=== PATIENT | male | born 1980 | race Caucasian/White ===

== ENCOUNTER → 2019-05-25 | Outpatient (CLI) | payer BC ==
--- NOTE | 2019-05-25 19:19 | US ---
EXAMINATION TYPE: US abdomen complete DATE OF EXAM: 05/25/2019 COMPARISON: NONE CLINICAL HISTORY: R10.817 Generalized Abdominal Tenderness. Intermittent lower abdomen pain and bloat ing x 3 to 4 weeks, occasional nausea EXAM MEASUREMENTS: Liver Length: 15.3 cm Gallbladder Wall: 0.2 cm CBD: 0.4 cm Spleen: 14.3 cm Right Kidney: 10.1 x 5.4 x 5.2 cm Left Kidney: 11.0 x 5.3 x 5.2 cm Pancreas: limited by overlying midline bowel gas Liver: scanned intercostally, visualized portions wnl Gallbladder: wnl Evidence for sonographic Avalos's sign: no CBD: visualized portions wnl, limited by overlying midline bowel gas Spleen: mildly enlarged Right Kidney: wnl Left Kidney: wnl Upper IVC: wnl Abd Aorta: wnl IMPRESSION: 1. Limited examination due to bowel gas. 2. No suspicious ultrasound abnormality within the abdomen
== END | disposition home or self-care (01) ==
LOC: RADUSWWP 08:33
PROVIDERS: ATTEND Family Medicine
DX: K42.9 Umbilical hernia without obstruction or gangrene (principal); R10.817 Generalized abdominal tenderness
CPT/HCPCS: 76700

== ENCOUNTER 2020-10-27 19:54 | Inpatient (IN) | payer BC ==
[2020-10-27] MEDS ORDERED: ALBUTEROL HFA INHALER INHALATION STA (20:07)
[2020-10-27] MEDS ORDERED: SODIUM CHLORIDE 0.9% 1,000 ML IV ONE (20:24)
[2020-10-27] MEDS ORDERED: KETOROLAC 15 MG/ML 1 ML VIAL IVP STA (20:24)
--- NOTE | 2020-10-27 20:26 | ED ---
SOB HPI - General Chief Complaint: Shortness of Breath Stated Complaint: +COVID,SOB Time Seen by Provider: 10/27/20 20:01 Source: patient Mode of arrival: ambulatory Limitations: no limitations - History of Present Illness Initial Comments: 40 year-old male patient diagnosed with COVID-19 three days ago presents to the emergency department for evaluation for increased shortness of breath and fatigue. Patient states he has had symptoms for a week. States he has a harsh cough, nausea, fatigue, and aching joints. He denies sputum production. Denies history of lung conditions or smoking. Denies any chronic medical conditions. Denies any constipation or diarrhea. States he has decreased appetite. T-max at home is 103.9F. he did take medicine for fever around 7:30 this evening. Denies any other medications. Patient denies any recent rash, chest pain, abdominal pain, back pain, numbness, tingling, dizziness, hematuria, dysuria, urinary urgency, urinary frequency, headache, visual changes, or any other complaints. - Related Data Home Medications Medication Instructions Recorded Confirmed No Known Home Medications 10/27/20 10/27/20 Allergies Allergy/AdvReac Type Severity Reaction Status Date / Time Penicillins Allergy Rash/Hives Verified 10/27/20 21:42 Review of Systems ROS Statement: Those systems with pertinent positive or pertinent negative responses have been documented in the HPI. ROS Other: All systems not noted in ROS Statement are negative. Past Medical History Past Medical History: No Reported History History of Any Multi-Drug Resistant Organisms: None Reported Past Surgical History: Hernia Repair Additional Past Surgical History / Comment(s): BOWEL POLYPS REMOVED Past Psychological History: No Psychological Hx Reported Smoking Status: Former smoker Past Alcohol Use History: None Reported Past Drug Use History: None Reported General Exam Limitations: no limitations General appearance: alert, in no apparent distress, other (This is a well devloped, well nourished adult male patient in mild respiratory distress. Temp is 100F, pulse 98, respirations 28, blood pressur 125/77, pulse ox 92% on room air.) Eye exam: Present: normal appearance, PERRL, EOMI. Absent: scleral icterus, conjunctival injection, periorbital swelling ENT exam: Present: normal exam, normal oropharynx, mucous membranes moist Respiratory exam: Present: normal lung sounds bilaterally, other (Tachypnea). Absent: respiratory distress, wheezes, rales, rhonchi, stridor Cardiovascular Exam: Present: regular rate, normal rhythm, normal heart sounds. Absent: systolic murmur, diastolic murmur, rubs, gallop, clicks GI/Abdominal exam: Present: soft, normal bowel sounds. Absent: distended, tenderness, guarding, rebound, rigid Neurological exam: Present: alert, oriented X3, CN II-XII intact Psychiatric exam: Present: normal affect, normal mood Skin exam: Present: warm, dry, intact, normal color. Absent: rash Course Vital Signs 10/27/20 10/27/20 10/27/20 19:56 20:47 20:52 Temperature 100 F H 99 F Pulse Rate 98 86 Respiratory 28 H 20 Rate Blood Pressure 125/77 133/83 O2 Sat by Pulse 92 L 94 L Oximetry 10/27/20 22:00 Temperature Pulse Rate Respiratory Rate Blood Pressure O2 Sat by Pulse 90 L Oximetry Medical Decision Making - Medical Decision Making 40-year-old male patient presents to the emergency department today for evaluation of increased shortness of breath, fatigue, nausea. Diagnosis over the on Thursday. Physical examination did reveal clear equal lung sounds. Labs reviewed and did reveal elevated CRP, LDH. Chest x-ray did show developing pneumonia. He did have ambulatory pulse ox of 88-89% on room air. He will be admitted to the hospital we will start steroids. Give albuterol inhaler. We will consult pulmonology. - Lab Data Result diagrams: 10/27/20 20:20 10/27/20 20:20 Lab Results 10/27/20 10/27/20 10/27/20 Range/Units 20:20 20:20 20:20 WBC 4.1 (3.8-10.6) k/uL RBC 4.58 (4.30-5.90) m/uL Hgb 13.7 (13.0-17.5) gm/dL Hct 39.7 (39.0-53.0) % MCV 86.7 (80.0-100.0) fL MCH 29.8 (25.0-35.0) pg MCHC 34.4 (31.0-37.0) g/dL RDW 13.9 (11.5-15.5) % Plt Count 236 (150-450) k/uL MPV 7.1 Neutrophils % 77 % Lymphocytes % 18 % Monocytes % 3 % Eosinophils % 0 % Basophils % 0 % Neutrophils # 3.1 (1.3-7.7) k/uL Lymphocytes # 0.7 L (1.0-4.8) k/uL Monocytes # 0.1 (0-1.0) k/uL Eosinophils # 0.0 (0-0.7) k/uL Basophils # 0.0 (0-0.2) k/uL Hyperchromasia Slight PT 10.4 (9.0-12.0) sec INR 1.0 (<1.2) APTT 24.3 (22.0-30.0) sec D-Dimer 0.30 (<0.60) mg/L FEU Sodium 136 L (137-145) mmol/L Potassium 3.8 (3.5-5.1) mmol/L Chloride 100 (98-107) mmol/L Carbon Dioxide 24 (22-30) mmol/L Anion Gap 12 mmol/L BUN 17 (9-20) mg/dL Creatinine 0.93 (0.66-1.25) mg/dL Est GFR (CKD-EPI)AfAm >90 (>60 ml/min/1.73 sqM) Est GFR (CKD-EPI)NonAf >90 (>60 ml/min/1.73 sqM) Glucose 114 H (74-99) mg/dL Plasma Lactic Acid [place] (0.7-2.0) mmol/L Calcium 9.2 (8.4-10.2) mg/dL Magnesium 2.2 (1.6-2.3) mg/dL Total Bilirubin 0.8 (0.2-1.3) mg/dL AST 54 (17-59) U/L ALT 72 H (4-49) U/L Alkaline Phosphatase 80 (38-126) U/L Lactate Dehydrogenase 940 H (313-618) U/L C-Reactive Protein 52.8 H (<10.0) mg/L Total Protein 7.9 (6.3-8.2) g/dL Albumin 4.3 (3.5-5.0) g/dL 10/27/20 Range/Units 20:20 WBC (3.8-10.6) k/uL RBC (4.30-5.90) m/uL Hgb (13.0-17.5) gm/dL Hct (39.0-53.0) % MCV (80.0-100.0) fL MCH (25.0-35.0) pg MCHC (31.0-37.0) g/dL RDW (11.5-15.5) % Plt Count (150-450) k/uL MPV Neutrophils % % Lymphocytes % % Monocytes % % Eosinophils % % Basophils % % Neutrophils # (1.3-7.7) k/uL Lymphocytes # (1.0-4.8) k/uL Monocytes # (0-1.0) k/uL Eosinophils # (0-0.7) k/uL Basophils # (0-0.2) k/uL Hyperchromasia PT (9.0-12.0) sec INR (<1.2) APTT (22.0-30.0) sec D-Dimer (<0.60) mg/L FEU Sodium (137-145) mmol/L Potassium (3.5-5.1) mmol/L Chloride (98-107) mmol/L Carbon Dioxide (22-30) mmol/L Anion Gap mmol/L BUN (9-20) mg/dL Creatinine (0.66-1.25) mg/dL Est GFR (CKD-EPI)AfAm (>60 ml/min/1.73 sqM) Est GFR (CKD-EPI)NonAf (>60 ml/min/1.73 sqM) Glucose (74-99) mg/dL Plasma Lactic Acid [place] 0.9 (0.7-2.0) mmol/L Calcium (8.4-10.2) mg/dL Magnesium (1.6-2.3) mg/dL Total Bilirubin (0.2-1.3) mg/dL AST (17-59) U/L ALT (4-49) U/L Alkaline Phosphatase (38-126) U/L Lactate Dehydrogenase (313-618) U/L C-Reactive Protein (<10.0) mg/L Total Protein (6.3-8.2) g/dL Albumin (3.5-5.0) g/dL - EKG Data -: EKG Interpreted by Ut EKG Comments: EKG obtained at 2043 shows normal sinus rhythm with a ventricular rate of 83, UT interval 172, QR jehovah's witness 84, QT 352, QTc 413. No evidence of ST elevation o r depression - Radiology Data Radiology results: report reviewed, image reviewed One view x-ray of the chest is obtained. Report was reviewed in its entirety. Impression by Dr. Mejia shows new mild pneumonia and atelectasis at the right lung base compared to old exam. Normal heart. Disposition Clinical Impression: Pneumonia due to COVID-19 virus, Hypoxia Disposition: ADMITTED IP TO THIS HOSP Condition: Serious Referrals: Clayton James DO [Primary Care Provider] - 1-2 days Decision to Admit Reason: Admit from EC Decision Date: 10/27/20 Decision Time: 22:22
--- NOTE | 2020-10-27 20:35 | XR ---
EXAMINATION TYPE: XR chest 1V portable DATE OF EXAM: 10/27/2020 COMPARISON: 08/26/2014 HISTORY: Cough and congestion TECHNIQUE: Single view FINDINGS: There is some mild infiltrate and atelectasis at the right lung base. Left lung is fairly c lear. There is no heart failure. Heart size is normal. IMPRESSION: New mild pneumonia and atelectasis at the right lung base compared to old exam. Normal he art.
[2020-10-27] MEDS ORDERED: ONDANSETRON 4 MG/2 ML VIAL IVP STA (20:52)
[2020-10-27 21:14] LABS: Basophils % (A) 0 %; Eosinophils % (A) 0 %; HCT 39.7 % (39.0-53.0); HGB 13.7 gm/dL (13.0-17.5); Hyperchromasia Slight; Lymphocytes # (A) 0.7 k/uL (1.0-4.8); Lymphocytes % (A) 18 %; MCH 29.8 pg (25.0-35.0); MCHC 34.4 g/dL (31.0-37.0); MCV 86.7 fL (80.0-100.0); Mean Platelet Volume 7.1; Monocytes # (A) 0.1 k/uL (0-1.0); Monocytes % (A) 3 %; Neutrophils # (A) 3.1 k/uL (1.3-7.7); Neutrophils % (A) 77 %; Platelet Count 236 k/uL (150-450); RBC 4.58 m/uL (4.30-5.90); RDW 13.9 % (11.5-15.5); WBC 4.1 k/uL (3.8-10.6)
[2020-10-27 21:26] LABS: D-Dimer 0.3 mg/L FEU (<0.60); Partial Thromboplastin Time 24.3 sec (22.0-30.0); Prothrombin Time 10.4 sec (9.0-12.0)
[2020-10-27 21:36] LABS: ALT 72 U/L (4-49); AST 54 U/L (17-59); African American GFR (CKD) >90 (>60 ml/min/1.73 sqM); Albumin 4.3 g/dL (3.5-5.0); Alkaline Phosphatase 80 U/L (38-126); Anion Gap 12 mmol/L; Blood Urea Nitrogen 17 mg/dL (9-20); C Reactive Protein 52.8 mg/L (<10.0); Calcium 9.2 mg/dL (8.4-10.2); Carbon Dioxide 24 mmol/L (22-30); Chloride 100 mmol/L (98-107); Glucose 114 mg/dL (74-99); LDH 940 U/L (313-618); Magnesium 2.2 mg/dL (1.6-2.3); Non-African American GFR(CKD) >90 (>60 ml/min/1.73 sqM); Potassium 3.8 mmol/L (3.5-5.1); Sodium 136 mmol/L (137-145); Total Bilirubin 0.8 mg/dL (0.2-1.3); Total Protein 7.9 g/dL (6.3-8.2)
[2020-10-27] MEDS ORDERED: DEXAMETHASONE SOD PHOSPHATE 10 MG/ML 1 ML VIAL IV STA (22:00)
[2020-10-27] MEDS ORDERED: KETOROLAC 15 MG/ML 1 ML VIAL IVP PRN (22:19)
[2020-10-27] MEDS ORDERED: ONDANSETRON 4 MG/2 ML VIAL IVP PRN (22:19)
[2020-10-27] MEDS ORDERED: NALOXONE 0.4 MG/ML 1 ML VIAL IV PRN (22:19)
[2020-10-27] MEDS ORDERED: ALBUTEROL HFA INHALER INHALATION PRN (22:33)
[2020-10-28] MEDS: ALBUTEROL HFA INHALER INHALATION SCH ×4 (07:28→20:01)
[2020-10-28] MEDS ORDERED: ALBUTEROL HFA INHALER INHALATION SCH (08:00)
[2020-10-28] MEDS: DEXAMETHASONE SOD PHOSPHATE 10 MG/ML 1 ML VIAL IV SCH (08:29)
[2020-10-28] MEDS: COLCHICINE 0.6 MG EACH PO SCH ×2 (08:29→19:51)
[2020-10-28] MEDS: ACETAMINOPHEN TAB 325 MG TAB PO PRN ×2 (08:37→19:50)
--- NOTE | 2020-10-28 10:17 | P.HPIM ---
History of Present Illness 40 year-old male patient diagnosed with COVID-19 three days ago presents to the emergency department for evaluation for increased shortness of breath and fatigue. Patient states he has had symptoms for a week. States he has a harsh cough, nausea, fatigue, and aching joints. He denies sputum production. Denies history of lung conditions or smoking. Denies any chronic medical conditions. Denies any constipation or diarrhea. States he has decreased appetite. T-max at home is 103.9F yesterday. Patient denies any recent rash, chest pain, abdominal pain, back pain, numbness, tingling, dizziness, hematuria, dysuria, urinary urgency, urinary frequency, headache, visual changes, or any other complaints. Patient was diagnosed with the Covid about a week ago. Patient was having symptoms for about 10 days. Patient was started on Decadron, colchicine. Patient will be started on zinc supplementation as well. Patient is outside window for Remdesivir. Review of Systems REVIEW OF SYSTEMS: CONSTITUTIONAL: As mentioned in HPI HEENT: No recent visual problems or hearing problems. Denied any sore throat. CARDIOVASCULAR: No chest pain, orthopnea, PND, no palpitations, no syncope. PULMONARY: no cough, no hemoptysis. GASTROINTESTINAL: No diarrhea, no nausea, no vomiting, no abdominal pain. NEUROLOGICAL: No headaches, no weakness, no numbness. HEMATOLOGICAL: Denies any bleeding or petechiae. GENITOURINARY: Denies any burning micturition, frequency, or urgency. MUSCULOSKELETAL/RHEUMATOLOGICAL: Denies any joint pain, swelling, or any muscle pain. ENDOCRINE: Denies any polyuria or polydipsia. The rest of the 14-point review of systems is negative. Past Medical History Past Medical History: No Reported History History of Any Multi-Drug Resistant Organisms: None Reported Past Surgical History: Hernia Repair Additional Past Surgical History / Comment(s): BOWEL POLYPS REMOVED Past Psychological History: No Psychological Hx Reported Smoking Status: Former smoker Past Alcohol Use History: None Reported Past Drug Use History: None Reported Medications and Allergies Home Medications Medication Instructions Recorded Confirmed Type No Known Home Medications 10/27/20 10/27/20 History Allergies Allergy/AdvReac Type Severity Reaction Status Date / Time Penicillins Allergy Rash/Hives Verified 10/27/20 21:42 Physical Exam Vitals: Vital Signs Temp Pulse Pulse Resp BP BP Pulse Ox 10/28/20 08:31 75 15 10/28/20 05:46 97.6 F 75 15 134/81 95 10/28/20 01:41 97.4 F L 64 15 118/75 98 10/27/20 23:04 97.3 F L 71 14 118/76 95 10/27/20 22:25 86 H 10/27/20 22:00 90 L 10/27/20 20:52 86 20 133/83 94 L 10/27/20 20:47 99 F 10/27/20 19:56 100 F H 98 28 H 125/77 92 L Intake and Output 10/27/20 10/28/20 10/28/20 22:59 06:59 14:59 Other: Weight 90.718 kg PHYSICAL EXAMINATION: GENERAL: The patient is alert and oriented x3, not in any acute distress. Well developed, well nourished. HEENT: Pupils are round and equally reacting to light. EOMI. No scleral icterus. No conjunctival pallor. Normocephalic, atraumatic. No pharyngeal erythema. No thyromegaly. CARDIOVASCULAR: S1 and S2 present. No murmurs, rubs, or gallops. PULMONARY: Chest is clear to auscultation, no wheezing or crackles. ABDOMEN: Soft, nontender, nondistended, normoactive bowel sounds. No palpable organomegaly. MUSCULOSKELETAL: No joint swelling or deformity. EXTREMITIES: No cyanosis, clubbing, or pedal edema. NEUROLOGICAL: Gross neurological examination did not reveal any focal deficits. SKIN: No rashes. Results CBC & Chem 7: 10/27/20 20:20 10/27/20 20:20 Labs: Abnormal Lab Results - Last 24 Hours (Table) 10/27/20 10/27/20 Range/Units 20:20 20:20 Lymphocytes # 0.7 L (1.0-4.8) k/uL Sodium 136 L (137-145) mmol/L Glucose 114 H (74-99) mg/dL ALT 72 H (4-49) U/L Lactate Dehydrogenase 940 H (313-618) U/L C-Reactive Protein 52.8 H (<10.0) mg/L Thrombosis Risk Factor Assmnt - Choose All That Apply Any of the Below Risk Factors Present?: Yes Each Factor Represents 1 point: Age 41-60 years, Medical pt on bed rest Thrombosis Risk Factor Assessment Total Risk Factor Score: 2 Thrombosis Risk Factor Assessment Level: Low Risk Assessment and Plan Plan: -Covid 19 infection and pneumonia: Patient will be continued on above-mentioned medications that his colchicine, Decadron, zinc. Monitor clinically if he improves and if he doesn't require any oxygen patient probably can be discharged tomorrow. -Elevated inflammatory markers secondary to Covid 19. -DVT prophylaxis Lovenox GI prophylaxis Pepcid
[2020-10-28 10:59] LABS: Ferritin 1695.2 ng/mL (22.0-322.0)
[2020-10-28] MEDS: CHOLECALCIFEROL 25 MCG (1000 IU) TABLET PO SCH (11:49)
[2020-10-28] MEDS: ASCORBIC ACID 500 MG TAB PO SCH (11:50)
--- NOTE | 2020-10-28 11:54 | P.HPPUL ---
History of Present Illness H&P Date: 10/28/20 Chief Complaint: Shortness of breath This is a very pleasant 40-year-old gentleman who follows with Dr. James as his primary care provider. He has no significant medical history. Not on any home medications. On 10/19/2020 he developed symptoms of fever, body aches and pains. He then developed nausea, vomiting and diarrhea with headaches. He tested positive for CoVID on 10/22/2020. The last couple of days he's had increasing shortness of breath cough and congestion. He presented here to the emergency room yesterday for the same. Initial temperature 100.0. O2 saturation 92% on room air. Chest x-ray did reveal evidence of atelectasis and mild infiltrate at the right lung base. White count 12.1. Hemoglobin 13.7. D- dimer 0.30. Sodium 136. Potassium 3.8. Ferritin level MDCXCV. LDH 940. C- reactive protein 52.8. He is seen today in consultation on the regular medical floor. He is currently resting quite comfortably in bed. Awake and alert in no acute distress. He states he still has some dyspnea on minimal exertion. He is maintaining O2 saturation in the 90s on 2 L/m per nasal cannula. Currently afebrile. Continues with diarrhea. Review of Systems REVIEW OF SYSTEMS: CONSTITUTIONAL: Positive for generalized weakness, myalgias, fever. Denies any recent significant weight loss or weight gain. EYES: Denies change in vision. EARS, NOSE, MOUTH, THROAT: Denies headaches, denies sore throat. CARDIOVASCULAR: Denies chest pain, palpitations or syncopal episodes. RESPIRATORY: Positive for shortness of breath, cough, congestion no hemoptysis. GASTROINTESTINAL: Positive for nausea, vomiting, diarrhea. GENITOURINARY: Denies hematuria, denies infections. MUSKULOSKELETAL: Denies pain, denies swelling. INTEGUMENTARY: Denies rash, denies eczema. NEUROLOGICAL: Denies recent memory loss, no recent seizure activity. PSYCHIATRIC: Denies anxiety, denies depression. HEMATOLOGIC/LYMPHATIC: Denies anemia, denies enlarged lymph nodes. Past Medical History Past Medical History: No Reported History History of Any Multi-Drug Resistant Organisms: None Reported Past Surgical History: Hernia Repair Additional Past Surgical History / Comment(s): BOWEL POLYPS REMOVED Past Psychological History: No Psychological Hx Reported Smoking Status: Former smoker Past Alcohol Use History: None Reported Past Drug Use History: None Reported Medications and Allergies Home Medications Medication Instructions Recorded Confirmed Type No Known Home Medications 10/27/20 10/27/20 History Allergies Allergy/AdvReac Type Severity Reaction Status Date / Time Penicillins Allergy Rash/Hives Verified 10/27/20 21:42 Physical Examination Vital signs: Vital Signs Temp Pulse Resp BP Pulse Ox 100 F H 98 28 H 125/77 92 L 10/27/20 19:56 10/27/20 19:56 10/27/20 19:56 10/27/20 19:56 10/27/20 19:56 Vital Signs Comment(s): GENERAL EXAM: Alert, awake, very pleasant 40-year-old gentleman, on 2 L nasal cannula, comfortable in no apparent distress. HEAD: Normocephalic. EYES: Normal reaction of pupils, equal size. NOSE: Clear with pink turbinates. THROAT: No erythema or exudates. NECK: No masses, no JVD. CHEST: No chest wall deformity. LUNGS: Equal air entry with bibasilar crackles right greater than left. CVS: S1 and S2 normal with no audible murmur, regular rhythm. ABDOMEN: No hepatosplenomegaly, normal bowel sounds, no guarding or rigidity. SPINE: No scoliosis or deformity SKIN: No rashes CENTRAL NERVOUS SYSTEM: No focal deficits, tone is normal in all 4 extremities. EXTREMITIES: There is no peripheral edema. No clubbing, no cyanosis. P eripheral pulses are intact. Results - Laboratory Findings CBC and BMP: 10/27/20 20:20 10/27/20 20:20 PT/INR, D-dimer PT 10.4 sec (9.0-12.0) 10/27/20 20:20 INR 1.0 (<1.2) 10/27/20 20:20 D-Dimer 0.30 mg/L FEU (<0.60) 10/27/20 20:20 Abnormal lab findings: Abnormal Labs 10/27/20 10/27/20 20:20 20:20 Lymphocytes # 0.7 L Sodium 136 L Glucose 114 H Ferritin 1695.2 H ALT 72 H Lactate Dehydrogenase 940 H C-Reactive Protein 52.8 H - Diagnostic Findings Chest x-ray: image reviewed Assessment and Plan Assessment: 1 Acute hypoxic respiratory failure secondary to CoVID 19 pneumonia. Outside the window for Remdesivir 2 Febrile illness secondary to above 3 Nausea, vomiting, diarrhea secondary to above 4 Elevated inflammatory markers secondary to above 5 Former smoker Plan: The patient was seen and evaluated by Dr. Corbin Chest x-ray and labs reviewed Mild pulmonary symptoms currently Initiated on Decadron, colchicine, Lovenox Continue Pepcid, melatonin, vitamin supplements Repeat chest x-ray and inflammatory markers in a.m. We will continue to follow and make further recommendations based on his clinical status I, the cosigning physician, performed a history & physical examination of the patient. Lungs sounds crackles in the posterior bases right greater than left. Maintaining good O2 saturations in the 90s on 2 L/m per nasal cannula. I discussed the assessment and plan of care with my nurse practitioner, Mariia Cazares. I attest to the above consultation as dictated by her. Time with Patient: Greater than 30
[2020-10-28] MEDS: FAMOTIDINE 20 MG TAB PO SCH (19:51)
[2020-10-28] MEDS ORDERED: MELATONIN 5 MG TABLET PO SCH (21:00)
[2020-10-29 01:51] VITALS: TEMP 97.6
[2020-10-29] MEDS: CHOLECALCIFEROL 25 MCG (1000 IU) TABLET PO SCH (07:24)
[2020-10-29] MEDS: FAMOTIDINE 20 MG TAB PO SCH (07:24)
[2020-10-29] MEDS: ASCORBIC ACID 500 MG TAB PO SCH (07:24)
[2020-10-29] MEDS: DEXAMETHASONE SOD PHOSPHATE 10 MG/ML 1 ML VIAL IV SCH (07:26)
[2020-10-29] MEDS: COLCHICINE 0.6 MG EACH PO SCH (07:44)
[2020-10-29] MEDS: ALBUTEROL HFA INHALER INHALATION SCH ×2 (08:12→12:12)
[2020-10-29 08:13] VITALS: BP 117/70; PULSE 71; RESP 16
[2020-10-29 08:53] LABS: C Reactive Protein 3.5 mg/dL (0.0-0.8)
[2020-10-29] MEDS ORDERED: ENOXAPARIN 40 MG/0.4 ML SYRINGE SQ SCH (09:00)
[2020-10-29] MEDS ORDERED: ZINC SULFATE 220 MG CAP PO SCH (09:00)
--- NOTE | 2020-10-29 10:30 | XR ---
EXAMINATION TYPE: XR chest 1V portable DATE OF EXAM: 10/29/2020 COMPARISON: Chest x-ray 10/27/2020 HISTORY: Code with pneumonia TECHNIQUE: Single frontal view of the chest is obtained. FINDINGS: Findings are similar to prior exam. IMPRESSION: Findings consistent with patient's history: Pneumonia.
[2020-10-29] MEDS ORDERED: SENNOSIDES 8.6 MG TAB PO SCH (12:30)
--- NOTE | 2020-10-29 14:33 | P.DS ---
Providers Date of admission: 10/27/20 22:15 Expected date of discharge: 10/29/20 Attending physician: Capo Mcmahan Consults: 10/27/20 22:19 Consult Physician Routine Consulting Provider: Cristobal Corbin Consult Reason/Comments: COVID Pnuemonia Do you want consulting provider notified?: Yes Primary care physician: Clayton James [facility] Course: Final diagnosis -Covid 19 infection and pneumonia -Elevated inflammatory markers secondary to Covid 19 -DVT prophylaxis -GI prophylaxis Pepcid Discharge disposition Patient is being discharged in a stable condition with guarded prognosis to home. Patient will follow-up with Dr. James in the outpatient setting upon discharge. Patient will also follow-up with pulmonary Dr. Shaquille mulligan in the outpatient setting. Patient to continue with dexamethasone along with colchicine to complete the course. Total time taken is greater than 35 minutes. Hospital course 40 year-old male patient diagnosed with COVID-19 three days ago presents to the emergency department for evaluation for increased shortness of breath and fatigue. Patient states he has had symptoms for a week. States he has a harsh cough, nausea, fatigue, and aching joints. He denies sputum production. Denies history of lung conditions or smoking. Denies any chronic medical conditions. Denies any constipation or diarrhea. States he has decreased appetite. T-max at home is 103.9F yesterday. Patient denies any recent rash, chest pain, abdominal pain, back pain, numbness, tingling, dizziness, hematuria, dysuria, urinary urgency, urinary frequency, headache, visual changes, or any other complaints. Patient was diagnosed with the Covid about a week ago. Patient was having symptoms for about 10 days. Patient was started on Decadron, colchicine. Patient will be started on zinc supplementation as well. Patient is outside window for Remdesivir. 10/29/2020 Patient is seen and evaluated and follow-up currently remains on 2 L at 94% oxygen saturation and continues to be dyspneic with exertion. Patient is maintained on Lovenox along with dexamethasone and colchicine along with vitamin supplements and will continue in the outpatient setting. Patient is instructed to wean oxygen as tolerated and follow up with pulmonary in the outpatient setting in 2-3 weeks. Patient also given incentive spirometer and instructed to continue using at least 10 times every hour while awake. Patient continue to isolate for another 7-10 days until symptom-free. Patient also instructed to follow-up with primary care provider upon discharge. Currently no reports of chest pain, worsening shortness of breath, or palpitations. Patient is afebrile. No reports of nausea or vomiting and patient is tolerating diet. Patient will be discharged home today. On exam vital signs are stable. Temp is 97.6F, pulse is 71, respirations are 16, blood pressure is 117/70, oxygen saturation is 94% on 2 L via nasal cannula. Cardio S1, S2 are muffled. Respiratory system shows diminished breath sounds at the bases with no wheezing or rhonchi noted. Abdomen is soft and nontender. Nervous system shows no focal deficits. Please refer to medication reconciliation sheet for a list of medications. Patient Condition at Discharge: Stable Plan - Discharge Summary Discharge Rx Participant: No New Discharge Prescriptions: New Colchicine [Colcrys] 0.6 mg PO BID 7 Days #14 each Dexamethasone 6 mg PO DAILY 8 Days #8 tablet Zinc Sulfate [Orazinc] 220 mg PO DAILY 30 Days #30 cap Famotidine [Pepcid] 20 mg PO BID 15 Days #30 tab Acetaminophen Tab [Tylenol] 650 mg PO Q6HR PRN tab PRN Reason: Mild Pain Or Fever > 100.5 Albuterol Inhaler [Ventolin Hfa Inhaler] 2 puff INHALATION RT-QID 30 Days #1 puff Albuterol Inhaler [Ventolin Hfa Inhaler] 1 puff INHALATION RT-QID PRN puff PRN Reason: Shortness Of Breath Or Wheezing Ascorbic Acid [Vitamin C] 1,000 mg PO DAILY 30 Days #60 tab Cholecalciferol [Vitamin D3 (25 Mcg = 1000 Iu)] 25 mcg PO DAILY 30 Days #30 tablet Discharge Medication List Acetaminophen Tab [Tylenol] 650 mg PO Q6HR PRN tab 10/29/20 [Rx] Albuterol Inhaler [Ventolin Hfa Inhaler] 1 puff INHALATION RT-QID PRN puff 10/29/20 [Rx] Albuterol Inhaler [Ventolin Hfa Inhaler] 2 puff INHALATION RT-QID 30 Days #1 puff 10/29/20 [Rx] Ascorbic Acid [Vitamin C] 1,000 mg PO DAILY 30 Days #60 tab 10/29/20 [Rx] Cholecalciferol [Vitamin D3 (25 Mcg = 1000 Iu)] 25 mcg PO DAILY 30 Days #30 tablet 10/29/20 [Rx] Colchicine [Colcrys] 0.6 mg PO BID 7 Days #14 each 10/29/20 [Rx] Dexamethasone 6 mg PO DAILY 8 Days #8 tablet 10/29/20 [Rx] Famotidine [Pepcid] 20 mg PO BID 15 Days #30 tab 10/29/20 [Rx] Zinc Sulfate [Orazinc] 220 mg PO DAILY 30 Days #30 cap 10/29/20 [Rx] Follow up Appointment(s)/Referral(s): Cristobal Corbin MD [STAFF PHYSICIAN] - 11/28/20 9:15 am [facility],Equipment [NON-STAFF] - As Needed (oxygen ) Clayton James DO [Primary Care Provider] - 11/13/20 3:00 pm (with Mary) Patient Instructions/Handouts: Coronavirus Disease 2019 (COVID-19), Using Oxygen at Home (DC) Activity/Diet/Wound Care/Special Instructions: Activity Limited until follow-up follow up with primary care provider upon discharge Continue taking steroids until finished Continue taking colchicine until finished Continue with incentive spirometer at least 10 times every hour while awake Continue with home oxygen until follow-up with pulmonary and wean off as tolerated Continue to isolate for another 7-10 days Encourage fluids and rest Discharge Disposition: HOME SELF-CARE
--- NOTE | 2020-10-29 15:04 | P.PN ---
Subjective Progress Note Date: 10/29/20 Principal diagnosis: Shortness of breath This is a very pleasant 40-year-old gentleman who follows with Dr. James as his primary care provider. He has no significant medical history. Not on any home medications. On 10/19/2020 he developed symptoms of fever, body aches and pains. He then developed nausea, vomiting and diarrhea with headaches. He tested positive for CoVID on 10/22/2020. The last couple of days he's had increasing shortness of breath cough and congestion. He presented here to the emergency room yesterday for the same. Initial temperature 100.0. O2 saturation 92% on room air. Chest x-ray did reveal evidence of atelectasis and mild infiltrate at the right lung base. White count 12.1. Hemoglobin 13.7. D- dimer 0.30. Sodium 136. Potassium 3.8. Ferritin level [id number]. LDH 940. C- reactive protein 52.8. He is seen today in consultation on the regular medical floor. He is currently resting quite comfortably in bed. Awake and alert in no acute distress. He states he still has some dyspnea on minimal exertion. He is maintaining O2 saturation in the 90s on 2 L/m per nasal cannula. Currently afebrile. Continues with diarrhea. On 10/29/2000 patient seen in follow-up on medical floor, he is awake and alert, in no acute distress, breathing comfortably, he is currently on 2 L of oxygen with a pulse ox of 94-96%, afebrile, hemodynamically stable, complaints of chest discomfort, his chest x-ray shows new mild pneumonia and/or atelectasis at the right lung base. Inflammatory markers are improving, d-dimer is 0.28 Objective - Vital Signs Vital signs: Vital Signs Temp 97.6 F 10/29/20 08:00 Pulse 71 10/29/20 08:00 Resp 16 10/29/20 08:00 BP 117/70 10/29/20 08:00 Pulse Ox 94 L 10/29/20 08:00 Intake & Output 10/28/20 10/29/20 10/29/20 18:59 06:59 18:59 Intake Total 1000 Balance 1000 Intake: Oral 1000 - Exam GENERAL EXAM: Alert, very pleasant, 40-year-old male on 2 L of oxygen pulse ox between 94-96% comfortable in no apparent distress. HEAD: Normocephalic/atraumatic. EYES: Normal reaction of pupils, equal size. Conjunctiva pink, sclera white. NOSE: Clear with pink turbinates. THROAT: No erythema or exudates. NECK: No masses, no JVD, no thyroid enlargement, no adenopathy. CHEST: No chest wall deformity. Symmetrical expansion. LUNGS: Equal air entry with no crackles, wheeze, rhonchi or dullness. CVS: Regular rate and rhythm, normal S1 and S2, no gallops, no murmurs, no rubs ABDOMEN: Soft, nontender. No hepatosplenomegaly, normal bowel sounds, no guarding or rigidity. EXTREMITIES: No clubbing, no edema, no cyanosis, 2+ pulses and upper and lower extremities. MUSCULOSKELETAL: Muscle strength and tone normal. SPINE: No scoliosis or deformity SKIN: No rashes CENTRAL NERVOUS SYSTEM: Alert and oriented -3. No focal deficits, tone is normal in all 4 extremities. PSYCHIATRIC: Alert and oriented -3. Appropriate affect. Intact judgment and insight. - Labs CBC & Chem 7: 10/27/20 20:20 10/27/20 20:20 Labs: Abnormal Lab Results - Last 24 Hours (Table) 10/29/20 10/29/20 Range/Units 06:14 06:14 Lactate Dehydrogenase 350 H (120-246) U/L C-Reactive Protein 3.5 H (0.0-0.8) mg/dL Procalcitonin 0.14 H (0.02-0.09) ng/mL Microbiology - Last 24 Hours (Table) 10/27/20 20:40 Blood Culture - Preliminary Blood No Growth after 24 hours 10/27/20 20:25 Blood Culture - Preliminary Blood No Growth after 24 hours Assessment and Plan Plan: Assessment: 1 Acute hypoxic respiratory failure secondary to CoVID 19 pneumonia. Outside the window for Remdesivir 2 Febrile illness secondary to above 3 Nausea, vomiting, diarrhea secondary to above 4 Elevated inflammatory markers secondary to above 5 Former smoker Plan: Patient is doing well, update home oxygen assessment no worsening symptoms overnight, no worsening dyspnea, he is on 2 L of oxygen, no fever or chills, patient was outside the window for Remdesivir, continue Decadron for a total of 10 days, inflammatory markers are improving, d-dimer is low. No acute events overnight, he still discharge home from pulmonary perspective with outpatient follow-up in 2-[address] Hawthorne in the office I performed a history & physical examination of the patient and discussed their management with my nurse practitioner, Abiola Yao. I reviewed the nurse practitioner's note and agree with the documented findings and plan of care. Lung sounds are positive for diminished breath sounds. The findings and the impression was discussed with the patient. I attest to the documentation by the nurse practitioner. Time with Patient: Less than 30
== END 2020-10-29 15:02 | disposition home or self-care (01) | DRG 177 ==
LOC: EC 19:54 → 4SSUR 22:15
PROVIDERS: ADMIT Hospitalist; ATTEND Hospitalist
DX: U07.1 COVID-19 (principal); J12.82 Pneumonia due to coronavirus disease 2019; J96.01 Acute respiratory failure with hypoxia; J98.11 Atelectasis; Z87.891 Personal history of nicotine dependence; Z87.11 Personal history of peptic ulcer disease; R11.2 Nausea with vomiting, unspecified; R19.7 Diarrhea, unspecified; Z88.0 Allergy status to penicillin
CPT/HCPCS: 36415; 71045; 80053; 82728; 83605; 83615; 83735; 84145; 85025; 85379; 85610; 85730; 86140; 87040; 93005; 94640; 96361; 96374; 96375; 99285

== ENCOUNTER → 2020-11-14 | Outpatient (CLI) | payer BC ==
--- NOTE | 2020-11-15 09:07 | XR ---
EXAMINATION TYPE: XR chest 2V DATE OF EXAM: 11/14/2020 COMPARISON: 10/29/2020 HISTORY: Chest pain TECHNIQUE: Frontal and lateral views of the chest are obtained. FINDINGS: Resolution of basilar infiltrates. No evidence for pneumothorax. No pleural effusion. The cardiac silhouette size is within normal limits. The osseous structures are grossly intact. IMPRESSION: 1. Resolution of basilar infiltrates.
== END | disposition home or self-care (01) ==
LOC: RADXRYALE 16:57
PROVIDERS: ATTEND Physician Assistant Medical
DX: R06.02 Shortness of breath (principal); Z86.16 Personal history of COVID-19
CPT/HCPCS: 71046

== ENCOUNTER → 2021-12-24 | Outpatient (CLI) | payer BC ==
--- NOTE | 2021-12-24 08:44 | US ---
EXAMINATION TYPE: US abdomen limited DATE OF EXAM: 12/24/2021 COMPARISON: US CLINICAL HISTORY: R94.5 Abnormal LFT's. EXAM MEASUREMENTS: Liver Length: 14.6 cm Gallbladder Wall: 0.3 cm CBD: 0.5 cm Right Kidney: 10.2 x 5.2 x 5.7 cm Pancreas: Obscured by bowel gas Liver: difficult to penetrate Gallbladder: No stones seen Evidence for sonographic Avalos's sign: No CBD: wnl Right Kidney: No hydronephrosis or masses seen IMPRESSION: 1. Normal right upper quadrant ultrasound
== END | disposition home or self-care (01) ==
LOC: RADUSWWP 07:33
PROVIDERS: ATTEND Family Medicine
DX: R94.5 Abnormal results of liver function studies (principal)
CPT/HCPCS: 76705

== ENCOUNTER → 2022-09-02 | Outpatient (CLI) | payer BC ==
--- NOTE | 2022-09-02 14:27 | XR ---
EXAMINATION TYPE: XR abdomen 2V DATE OF EXAM: 09/02/2022 COMPARISON: NONE HISTORY: left lower quadrant pain TECHNIQUE: One view abdominal series FINDINGS: The osseous structures are intact. The bowel gas pattern is nonspecific. Lung bases are clear. Michelle ined debris within the colon. IMPRESSION: 1. Nonspecific abdomen. Correlate for constipation.
== END | disposition home or self-care (01) ==
LOC: RADXRYALE 14:11
PROVIDERS: ATTEND Physician Assistant Medical
DX: R10.814 Left lower quadrant abdominal tenderness (principal)
CPT/HCPCS: 74019